=== PATIENT | female | born 1955 | race Caucasian/White ===

== ENCOUNTER → 2018-03-28 | Outpatient (CLI) | payer OTHER ==
--- NOTE | 2018-03-28 15:39 | RADIOLOGY REPORT (SQ) ---
EXAM DESCRIPTION: MRI RT UPPER JOINT WITHOUT COMPLETED DATE/TIME: 03/28/2018 12:25 pm REASON FOR STUDY: UNSPECIFIED OSTEOARTHRITIS, UNSPECIFIED M19.90 UNSPECIFIED OSTEOARTHRITIS, UNSPEC IFIED SITE COMPARISON: None. TECHNIQUE: Right wrist images acquired and stored on PACS. Multiplanar images include fat sensitive sequences as T1, fluid sensitive sequences as FST2/STIR, cartilage sensitive sequences as FSPD, grad ient echo sequences. LIMITATIONS: None. FINDINGS: BONE MARROW: No alteration of signal to suggest marrow replacement or edema. No occult fra cture. No large osteophytes. CARPAL ALIGNMENT AND ARTICULATION: Normal congruity of sigmoid notch at level of distal RUJ without p ositive or negative ulnar variance. Normal capitolunate angle. EFFUSION: There is physiologic joint fluid. An 11 x 9 x 6 mm ganglion cyst is present along the palm ar aspect of the radioscaphoid joint, best shown on axial image 14, sagittal image 6, and coronal cesar ge 6. SCAPHOLUNATE LIGAMENT: Not well seen. Slight widening of the scapholunate interval worrisome for lig ament injury. LUNATE-TRIQUETRAL LIGAMENT: Intact without tear. TFC COMPLEX: Radial attachments not well seen. Ulnar attachments normal. Meniscus intact. Extensor c arpi ulnaris tendon normal without tendinopathy. EXTRINSIC LIGAMENTS AND DISTAL RADIO-ULNAR JOINT: Dorsal and volar distal RUJ intact without subluxat ion of the distal ulna. 1-6 EXTENSOR COMPARTMENTS: Normal. Specifically no tendinopathy of the abductor pollicis longus or ex tensor pollicis brevis to suggest de Quervain's Syndrome. CARPAL TUNNEL AND MEDIAN NERVE: Normal volume and morphology of the carpal tunnel proximally at the l evel of the radiocarpal joint and distally at the hook of the hamate. No thickening or signal alterat ion of the median nerve. OTHER: Mild changes of osteoarthritis at the 1st carpometacarpal joint with joint space narrowing and bony spurring best shown on coronal image 5 IMPRESSION: Synovial cyst protruding off the palmar aspect radioscaphoid joint, 11 x 9 x 6 mm in siz e. Slight widening of the scapholunate interval worrisome for ligament tear TECHNICAL DOCUMENTATION: JOB ID: [id number] [employer]- All Rights Reserved Reading location - IP/workstation name: [facility]
== END ==
LOC: RAD 11:42
PROVIDERS: ATTEND Orthopaedic Surgery
DX: M19.90 Unspecified osteoarthritis, unspecified site (principal)

== ENCOUNTER → 2019-03-04 | Outpatient (CLI) | payer OTHER ==
[~2019-03-04] MED LIST: REGADENOSON INJ 0.4 MG/5 ML DISP.SYRIN IV ONE
--- NOTE | 2019-03-05 08:00 | RADIOLOGY REPORT ---
STRESS TEST REPORT PATIENT NAME: ROYA LING ROOM#: DATE OF SERVICE: 03/04/2019 AGE: 63Y ORDER#: [id number] REFERRING MD: CHARITY BAIRD M.D. INDICATION: For assessment of atypical chest pains. PROCEDURE PERFORMED: Rest/stress single isotope Cardiolite SPECT imaging using IV Lexiscan stress and gated SPECT imaging. CLINICAL HISTORY: This 63-year-old female with no known coronary artery disease, but has cardiac risk factors of premature coronary artery disease in family history, hypertension, hypercholesterolemia. Current symptomatology includes chest pains. REPORT The patient received IV Lexiscan 0.4 mg infused over 10 seconds. The resting heart rate was 90 bpm and increased to 120 at end infusion. The resting blood pressure was 134/96 and was stable at 133/81 post-infusion. The patient had no symptoms of chest pains. Resting 12-lead EKG showed a normal sinus rhythm at 97 bpm, 8 PVCs a minute, nonspecific lateral ST changes. At end infusion, additional ST changes in the inferior leads were seen. These are nonspecific. Myocardial perfusion imaging was performed at rest 60 minutes following the injection of 13.72 mCi of Cardiolite. Ten seconds after the IV Lexiscan injection, the patient was injected with 39.2 mCi of Cardiolite and flushed. Gated poststress tomographic imaging was performed 60 minutes after stress. FINDINGS: The overall quality of the study is good. The left ventricular cavity is noted to be normal in size on both the rest and the stress study. There is no evidence of abnormal transient ischemic dilatation of the left ventricle. SPECT images showed no evidence of any IV Lexiscan-induced reversible ischemia and no fixed perfusion defect. The gated SPECT imaging showed normal motion contraction of all LV segments. The left ventricular ejection fraction was calculated to be 67% poststress. IMPRESSION: Myocardial perfusion imaging is normal. There is no evidence of IV Lexiscan-induced reversible ischemia and No fixed perfusion defect. Overall left ventricular ejection function was normal at 67%, with No regional wall motion abnormalities seen. No prior study for comparison. INTERPRETING PHYSICIAN: KARINA GARCIA M.D. /: [id number] TT: 0632 ID: [id number] /: [id number] TD: 0905 JOB: [id number] cc:Ree HIGGINS M.D. > LEW[facility]
== END ==
LOC: RAD 07:05
PROVIDERS: ATTEND Internal Medicine Cardiovascular Disease
DX: R07.9 Chest pain, unspecified (principal); I10 Essential (primary) hypertension; E78.00 Pure hypercholesterolemia, unspecified
CPT/HCPCS: 93017; 78452; A9500; J2785; Q9969